=== PATIENT | female | born 1940 | race Caucasian/White ===

== ENCOUNTER 2021-02-19 19:19 | Inpatient (IN) | payer OTHER ==
[~2021-02-19] VITALS: Ht 167.6 cm; Wt 38.8 kg
[~2021-02-19 19:19] MED LIST: CERTAGEN1 EACH PO; DULCOLAX5 MG PO; GARLIC1 EAC1 PO; LOPRESSOR50 MG PO; LOVENOX40 MG/0.4 SC; PERCOCET 5-3251 EACH PO; ULTRAM50 MG PO; VITAMIN B COMP1 EACH PO; VITAMIN E PO; XARELTO10 MG PO
[2021-02-19 20:51] LABS: BASOPHIL 0.2 % (0-2); EOSINOPHIL 0.1 % (0-7); HCT 35.4 % (37.0-47.0); HGB 11.1 g/dl (12.5-16.0); LYMPHOCYTE 2.1 % (15-48); MCHC 31.4 g/dL (32.0-36.0); MCV 89.4 fL (78.0-100.0); MPV 9.8 fL (6.0-9.5); NRBC 0; PLT 327 K/uL (150-400); RBC 3.96 M/uL (4.20-5.40); WBC 25.4 K/uL (4.0-10.5)
[2021-02-19 20:54] LABS: NEUTROPHIL 92.1 % (41-80)
[2021-02-19 21:12] LABS: ALBUMIN 2.3 g/dL (3.4-5.0); BILIRUBIN - TOTAL 0.5 mg/dL (0.2-1.0); BUN/CREAT RATIO (CALC) 22.1 RATIO; CREATININE 1.4 mg/dL (0.51-0.95); GLOBULIN (CALCULATION) 3.5 g/dL; MAGNESIUM 1.5 mg/dL (1.8-2.4); POTASSIUM 3.7 mmol/L (3.5-5.1); TOTAL PROTEIN 5.8 g/dL (6.4-8.2)
[2021-02-19 21:22] LABS: LACTIC ACID 1.9 mmol/L (0.4-1.9)
[2021-02-19 22:22] LABS: BILIRUBIN NEGATIVE (NEGATIVE); BLOOD NEGATIVE Ery/uL (NEGATIVE); CLARITY CLEAR (CLEAR); COLOR YELLOW (YELLOW); GLUCOSE (U) NORMAL (NORMAL); LEUKOCYTES NEGATIVE Leu/uL (NEGATIVE); NITRITE NEGATIVE (NEGATIVE); PROTEIN TRACE (LOW) mg/dL (NEGATIVE); SPECIFIC GRAVITY 1.015 (1.001-1.030); UROBILINOGEN 0.2 mg/dL (0.2-1.0)
--- NOTE | 2021-02-20 05:25 | NUR ---
WELLNESS RN NOTIFIED THAT AZACTAM IS OUT OF STOCK IN THIS FACILITY AT THIS TIME. WILL GIVE DOSAGE ONCE MEDICATION IS AVAILABLE
[2021-02-20 05:52] LABS: BASOPHIL 0.3 % (0-2); EOSINOPHIL 0 % (0-7); HCT 32.9 % (37.0-47.0); HGB 10.2 g/dl (12.5-16.0); LYMPHOCYTE 4.5 % (15-48); MCH 28.3 pg (25.0-31.0); MCV 91.1 fL (78.0-100.0); MONOCYTE 4.8 % (0-12); MPV 9.6 fL (6.0-9.5); NEUTROPHIL 89.7 % (41-80); NRBC 0; PLT 289 K/uL (150-400); RBC 3.61 M/uL (4.20-5.40); RDW 16.9 % (11.5-14.0); WBC 24.6 K/uL (4.0-10.5)
[2021-02-20 06:09] LABS: BUN/CREAT RATIO (CALC) 20.9 RATIO; CREATININE 1.39 mg/dL (0.51-0.95); POTASSIUM 3.9 mmol/L (3.5-5.1)
[2021-02-20 06:15] LABS: LACTIC ACID 0.9 mmol/L (0.4-1.9); TOTAL CELL COUNT 100
[2021-02-20 06:17] LABS: LYMPHOCYTE(M) 7 % (15-48); NEUTROPHILS(M) 93 % (41-80); PLATELET ESTIMATE NORMAL; PLATELET MORPHOLOGY NORMAL
[2021-02-20] MEDS ORDERED: DIGITEK125 MCG PO (09:14)
[2021-02-20] MEDS ORDERED: NORCO 5-325 TA1 EACH PO (09:14)
[2021-02-20 14:39] LABS: RETICULOCYTE COUNT 1.2 % (1.0-2.0)
[2021-02-20 14:52] LABS: IRON % SATURATION 12.3 %SAT (20-50)
[2021-02-20 15:57] LABS: FOLIC ACID (SERUM) 13.6 ng/mL (8.6-58.9)
[2021-02-21 05:28] LABS: BASOPHIL 0.1 % (0-2); EOSINOPHIL 0 % (0-7); HCT 26.1 % (37.0-47.0); HGB 8.4 g/dl (12.5-16.0); LYMPHOCYTE 1.6 % (15-48); MCH 28.8 pg (25.0-31.0); MCHC 32.2 g/dL (32.0-36.0); MCV 89.4 fL (78.0-100.0); MONOCYTE 0.7 % (0-12); MPV 9.4 fL (6.0-9.5); NRBC 0; PLT 247 K/uL (150-400); RBC 2.92 M/uL (4.20-5.40); RDW 17.1 % (11.5-14.0); WBC 13.4 K/uL (4.0-10.5)
[2021-02-21 05:37] LABS: NEUTROPHIL 96.9 % (41-80)
[2021-02-21 05:42] LABS: BILIRUBIN - TOTAL 0.2 mg/dL (0.2-1.0); BUN/CREAT RATIO (CALC) 21.5 RATIO; CREATININE 1.49 mg/dL (0.51-0.95); GLOBULIN (CALCULATION) 3.1 g/dL; POTASSIUM 3.3 mmol/L (3.5-5.1); TOTAL PROTEIN 5.1 g/dL (6.4-8.2)
--- NOTE | 2021-02-21 14:53 | NUR ---
RD visited with patient: patient provided little information; dghtr Mary present to provide history. ONS added to trays; informed family of purpose, discussed plans with RN. Will complete full assessment
[2021-02-22 05:26] LABS: BASOPHIL 0.1 % (0-2); EOSINOPHIL 0 % (0-7); HCT 24.7 % (37.0-47.0); HGB 7.8 g/dl (12.5-16.0); LYMPHOCYTE 2.1 % (15-48); MCH 28.2 pg (25.0-31.0); MCHC 31.6 g/dL (32.0-36.0); MCV 89.2 fL (78.0-100.0); MPV 9.5 fL (6.0-9.5); NEUTROPHIL 93.6 % (41-80); NRBC 0; PLT 217 K/uL (150-400); RBC 2.77 M/uL (4.20-5.40); RDW 17.2 % (11.5-14.0)
[2021-02-22 05:30] LABS: WBC 15.6 K/uL (4.0-10.5)
[2021-02-22 05:40] LABS: BUN/CREAT RATIO (CALC) 23.1 RATIO; CREATININE 1.17 mg/dL (0.51-0.95); POTASSIUM 4.3 mmol/L (3.5-5.1)
--- NOTE | 2021-02-22 16:25 | NUR ---
02/22/21 Ms. Graham lives at home with her daughter, Marizol Haney, son-in-law, grandson, granddaughter, and granddaughter's spouse. She is followed at [facility]. Code status is full, - Ms. Graham has a wc, ramp, 02, concentrator, rollator, s. chair, and cane. Ms. Graham is non-ambulatory. - Discussion took place with her daughter re: discharge planning needs. Ms. Haney is considering a hospital bed and / or bere lift. She will notify this social insurance administrator if she decides she would like DME. She is not interested in services.
[2021-02-23 05:08] LABS: BUN/CREAT RATIO (CALC) 23.4 RATIO; CREATININE 0.94 mg/dL (0.51-0.95)
[2021-02-23 05:10] LABS: BASOPHIL 0.2 % (0-2); EOSINOPHIL 0 % (0-7); HCT 26.1 % (37.0-47.0); HGB 8.4 g/dl (12.5-16.0); LYMPHOCYTE 2.6 % (15-48); MCH 28.4 pg (25.0-31.0); MCHC 32.2 g/dL (32.0-36.0); MCV 88.2 fL (78.0-100.0); MONOCYTE 2.6 % (0-12); MPV 10.2 fL (6.0-9.5); NEUTROPHIL 92.6 % (41-80); NRBC 0.1; PLT 216 K/uL (150-400); RBC 2.96 M/uL (4.20-5.40); RDW 17.5 % (11.5-14.0)
[2021-02-23 05:22] LABS: WBC 14.2 K/uL (4.0-10.5)
[2021-02-24 05:30] LABS: BASOPHIL 0.1 % (0-2); EOSINOPHIL 0 % (0-7); HCT 26.7 % (37.0-47.0); HGB 8.7 g/dl (12.5-16.0); LYMPHOCYTE 4.5 % (15-48); MCH 28.4 pg (25.0-31.0); MCHC 32.6 g/dL (32.0-36.0); MCV 87.3 fL (78.0-100.0); MONOCYTE 5.4 % (0-12); MPV 9.7 fL (6.0-9.5); NEUTROPHIL 87.7 % (41-80); NRBC 0.1; PLT 206 K/uL (150-400); RBC 3.06 M/uL (4.20-5.40); RDW 17.7 % (11.5-14.0); WBC 13.5 K/uL (4.0-10.5)
[2021-02-24 05:46] LABS: BUN/CREAT RATIO (CALC) 19.1 RATIO; CREATININE 0.94 mg/dL (0.51-0.95); POTASSIUM 3.6 mmol/L (3.5-5.1)
[2021-02-24] MEDS ORDERED: PREDNISONE 20MG20 MG PO (09:15)
[2021-02-24] MEDS ORDERED: VIBRAMYCIN100 MG PO (09:15)
== END 2021-02-24 09:58 | disposition home or self-care (01) | DRG 177 ==
LOC: FER 19:19 → FTCU 23:50
PROVIDERS: Emergency Medicine; Internal Medicine; Nurse Practitioner; ADMIT Internal Medicine
DX: J69.0 Pneumonitis due to inhalation of food and vomit (principal); E43 Unspecified severe protein-calorie malnutrition; J44.1 Chronic obstructive pulmonary disease with (acute) exacerbation; Z68.1 Body mass index [BMI] 19.9 or less, adult; C79.31 Secondary malignant neoplasm of brain; D50.9 Iron deficiency anemia, unspecified; Z20.822 Contact with and (suspected) exposure to COVID-19; L89.151 Pressure ulcer of sacral region, stage 1; I71.4 Abdominal aortic aneurysm, without rupture; Z96.643 Presence of artificial hip joint, bilateral; Z90.49 Acquired absence of other specified parts of digestive tract; Z79.899 Other long term (current) drug therapy; Z88.0 Allergy status to penicillin; Z88.1 Allergy status to other antibiotic agents; Z88.6 Allergy status to analgesic agent; Z88.8 Allergy status to other drugs, medicaments and biological substances; Z85.118 Personal history of other malignant neoplasm of bronchus and lung; Z87.891 Personal history of nicotine dependence; Z91.040 Latex allergy status
CPT/HCPCS: 36415; 36600; 71045; 71250; 80048; 80053; 80162; 81003; 82607; 82746; 82803; 83540; 83550; 83605; 83690; 83735; 84145; 85025; 87040; 92526; 93005; 94010; 94640; 94760; 94762; 97161; 97166; 97530-GP; 97535; C9113; J1100; J1642; J2405; J2916; J3475; J3490; J7030; J7512; U0002

== ENCOUNTER 2021-02-28 17:29 | Inpatient (IN) | payer OTHER ==
[~2021-02-28] VITALS: Ht 157.5 cm; Wt 44.2 kg
[~2021-02-28 17:29] MED LIST changes: +DIGITEK125 MCG PO; +NORCO 5-325 TA1 EACH PO; +PREDNISONE 20MG20 MG PO; +VIBRAMYCIN100 MG PO
[2021-02-28 18:00] LABS: BASOPHIL 0.2 % (0-2); EOSINOPHIL 0 % (0-7); HCT 30.8 % (37.0-47.0); HGB 9.9 g/dl (12.5-16.0); LYMPHOCYTE 4.4 % (15-48); MCH 28.9 pg (25.0-31.0); MCHC 32.1 g/dL (32.0-36.0); MCV 89.8 fL (78.0-100.0); MONOCYTE 1.2 % (0-12); MPV 9.9 fL (6.0-9.5); NRBC 0; PLT 387 K/uL (150-400); RBC 3.43 M/uL (4.20-5.40); RDW 18.7 % (11.5-14.0); WBC 18.3 K/uL (4.0-10.5)
[2021-02-28 18:03] LABS: NEUTROPHIL 92.5 % (41-80)
[2021-02-28 18:09] LABS: INR 1.26 (0.9-1.2); PROTHROMBIN TIME 15.1 SECONDS (11.8-13.4); PTT 28.2 SECONDS (24.4-34.7)
[2021-02-28 18:16] LABS: ALBUMIN 2.4 g/dL (3.4-5.0); BILIRUBIN - TOTAL 0.7 mg/dL (0.2-1.0); CREATININE 1.15 mg/dL (0.51-0.95); GLOBULIN (CALCULATION) 3.5 g/dL; TOTAL PROTEIN 5.9 g/dL (6.4-8.2)
[2021-02-28 18:50] LABS: LACTIC ACID 5.4 mmol/L (0.4-1.9)
--- NOTE | 2021-03-01 01:14 | NUR ---
PATIENT ARRIVED TO FLOOR VIA STRETCHER FROM ER, DAUGHTER AT BEDSIDE. PATIENT ALERT BUT FORGETFUL. BED IN LOW POSITION CALL LIGHT IN REACH.
[2021-03-01 05:41] LABS: BASOPHIL 0.2 % (0-2); EOSINOPHIL 0 % (0-7); HCT 25.1 % (37.0-47.0); HGB 8.2 g/dl (12.5-16.0); LYMPHOCYTE 1.9 % (15-48); MCH 29.2 pg (25.0-31.0); MCHC 32.7 g/dL (32.0-36.0); MCV 89.3 fL (78.0-100.0); MONOCYTE 3.6 % (0-12); NEUTROPHIL 93.5 % (41-80); NRBC 0; PLT 296 K/uL (150-400); RBC 2.81 M/uL (4.20-5.40); RDW 18.9 % (11.5-14.0)
[2021-03-01 05:56] LABS: WBC 30.8 K/uL (4.0-10.5)
[2021-03-01 06:12] LABS: BILIRUBIN - TOTAL 0.5 mg/dL (0.2-1.0); BUN/CREAT RATIO (CALC) 23.2 RATIO; CREATININE 0.95 mg/dL (0.51-0.95); GLOBULIN (CALCULATION) 2.9 g/dL; POTASSIUM 3.5 mmol/L (3.5-5.1); TOTAL PROTEIN 4.9 g/dL (6.4-8.2)
[2021-03-02 11:14] LABS: BASOPHIL 0.1 % (0-2); EOSINOPHIL 0.5 % (0-7); HCT 22.4 % (37.0-47.0); MCH 29.3 pg (25.0-31.0); MCHC 32.6 g/dL (32.0-36.0); MONOCYTE 4.2 % (0-12); MPV 9.6 fL (6.0-9.5); NEUTROPHIL 92.3 % (41-80); NRBC 0; PLT 295 K/uL (150-400); RBC 2.49 M/uL (4.20-5.40); RDW 19.6 % (11.5-14.0); WBC 18.9 K/uL (4.0-10.5)
[2021-03-02 11:16] LABS: HGB 7.3 g/dl (12.5-16.0)
[2021-03-02 12:49] LABS: BUN/CREAT RATIO (CALC) 18.1 RATIO; CREATININE 0.83 mg/dL (0.51-0.95)
--- NOTE | 2021-03-02 17:13 | NUR ---
03/02/21 Ms. Graham lives with her daughter, Marizol Haney, son-in-law, granddaughter and granddaughter's spouse. She has 02, portable, concentrator, rollator, wc, s. chair cane, and ramp. - Ms. Haney reports plans to continue treatment for the lung cancer. Discharge options were discussed; Hospice vs HH. They are not interested in Hospice. Ms. Graham reluctantly agreed to HH and chose [facility]. A referral was made via [facility].
--- NOTE | 2021-03-03 01:00 | NUR ---
0050 REPORT RECEIVED FROM ANATOLY. CARE ASSUMED.
[2021-03-03 06:01] LABS: BASOPHIL 0.1 % (0-2); EOSINOPHIL 1.1 % (0-7); HCT 22.8 % (37.0-47.0); HGB 7.1 g/dl (12.5-16.0); LYMPHOCYTE 3.3 % (15-48); MCH 28.4 pg (25.0-31.0); MCHC 31.1 g/dL (32.0-36.0); MCV 91.2 fL (78.0-100.0); MONOCYTE 5.3 % (0-12); MPV 9.7 fL (6.0-9.5); NEUTROPHIL 89.5 % (41-80); NRBC 0; PLT 311 K/uL (150-400); RDW 19.9 % (11.5-14.0); WBC 16.3 K/uL (4.0-10.5)
[2021-03-03 06:39] LABS: BUN/CREAT RATIO (CALC) 15.2 RATIO; CREATININE 0.79 mg/dL (0.51-0.95)
[2021-03-03] MEDS ORDERED: AUGMENTIN 500-1 EACH PO (08:24)
[2021-03-03] MEDS ORDERED: ZYVOX600 MG PO (08:24)
[2021-03-03] MEDS ORDERED: VITAMIN B-121000 MC1 PO (10:00)
[2021-03-03] MEDS ORDERED: FERROUS FUMARA324 MG PO (10:00)
[2021-03-03] MEDS ORDERED: FOLIC ACID1 M1 PO (10:00)
[2021-03-03] MEDS ORDERED: MEGACE40 MG PO (10:53)
[2021-03-03] MEDS ORDERED: ONDANSETRON ODT4 MG SL (10:53)
== END 2021-03-03 14:48 | disposition home health service (06) | DRG 871 ==
LOC: FER 17:29 → FTCU 23:43 → FMS 03-02 09:55 → FTCU 03-02 09:55 → FMS 03-02 09:55 → FTCU 03-02 15:44 → FMS 03-02 15:44
PROVIDERS: Allergy & Immunology Allergy; Emergency Medicine; Nurse Practitioner; ADMIT Internal Medicine
DX: A41.9 Sepsis, unspecified organism (principal); J18.9 Pneumonia, unspecified organism; J96.01 Acute respiratory failure with hypoxia; I21.A1 Myocardial infarction type 2; N17.9 Acute kidney failure, unspecified; J44.0 Chronic obstructive pulmonary disease with (acute) lower respiratory infection; E44.0 Moderate protein-calorie malnutrition; Z68.1 Body mass index [BMI] 19.9 or less, adult; R64 Cachexia; C34.90 Malignant neoplasm of unspecified part of unspecified bronchus or lung; F05 Delirium due to known physiological condition; J44.1 Chronic obstructive pulmonary disease with (acute) exacerbation; E87.0 Hyperosmolality and hypernatremia; R65.20 Severe sepsis without septic shock; Z96.643 Presence of artificial hip joint, bilateral; Z20.822 Contact with and (suspected) exposure to COVID-19; D50.9 Iron deficiency anemia, unspecified; I10 Essential (primary) hypertension; M62.84 Sarcopenia; T46.0X5A Adverse effect of cardiac-stimulant glycosides and drugs of similar action, initial encounter; R62.7 Adult failure to thrive; Z79.899 Other long term (current) drug therapy; Z90.49 Acquired absence of other specified parts of digestive tract; Z87.01 Personal history of pneumonia (recurrent); Z86.16 Personal history of COVID-19; Z87.891 Personal history of nicotine dependence; Z88.0 Allergy status to penicillin; Z88.7 Allergy status to serum and vaccine; Z88.8 Allergy status to other drugs, medicaments and biological substances; Z88.1 Allergy status to other antibiotic agents; Z91.040 Latex allergy status; Z88.6 Allergy status to analgesic agent; Y95 Nosocomial condition; Z98.890 Other specified postprocedural states
CPT/HCPCS: 36415; 36600; 71045; 71275; 80048; 80053; 80162; 82803; 83605; 84145; 84484; 85025; 85379; 85610; 85730; 87040; 93005; 94640; 94760; 97161; 97167; 97530; 97530-GP; 97535; J1642; J1650; J2185; J2540; J3370; J7030; J7050; J7060; Q9967; U0002